=== PATIENT | male | born 1985 | race Caucasian/White ===

== ENCOUNTER 2017-12-26 | Emergency (ER) | payer OTHER ==
[~2017-12-26] VITALS: Ht 165.1 cm; Wt 86.5 kg
[~2017-12-26] MED LIST: BENTYL10 MG PO; KEFLEX500 MG PO; MAGIC MOUTHWASH1 ML MM; MOTRIN600 MG PO; ZITHROMAX250 MG PO; ZOFRAN ODT4 MG PO
[2017-12-26] MEDS ORDERED: NAPROSYN500 MG PO (00:51)
[2017-12-26 00:59] VITALS: BP 134/76
== END 2017-12-26 00:59 | disposition home or self-care (01) ==
LOC: EME
DX: S80.12XA Contusion of left lower leg, initial encounter (principal); V19.9XXA Pedal cyclist (driver) (passenger) injured in unspecified traffic accident, initial encounter; Y93.55 Activity, bike riding
CPT/HCPCS: 73590; 99281; 99283